=== PATIENT | female | born 1990 | race Caucasian/White ===

== ENCOUNTER 2016-03-30 19:14 | Emergency (ER) | payer MEDICAID ==
[~2016-03-30] VITALS: Ht 160 cm; Wt 71.2 kg
[~2016-03-30 19:14] MED LIST: BACTRIM DS 8001 TAB PO; CIPRO 500MG TA500 MG PO; DEPO PROVER150 MG/ML IM; DEPO-PROVER150 MG/M2 IM; FIORICET 325 MG1 TAB PO; KEFLEX 500MG.500 MG PO; LORTAB 5/500 501 TAB PO; NOMEDS; PRENATAL PLUS1 TA1 PO; SULFAMETHOXAZOL1 TA6 PO; TRAMADOL 50MG T50 MG PO; TYLENOL/COD #31 EACH PO; ZOFRAN4 MG PO
[2016-03-30] MEDS ORDERED: PRENATAL PLUS1 TA1 PO (20:00)
--- NOTE | 2016-03-30 21:33 | Emergency Room Report ---
History of Present Illness Time Seen by [id number] Presenting Problem in Triage Pt arrived:Walked Presenting Problem:PT STATES HEMMORHOID THAT HAS FLARED UP FOR TWO DAYS. STATES PAIN WHILE SITTING OR WITH ACTIVITY. STATES PAIN WITH BOWEL MOVEMENTS. STATES HISTORY OF HEMMORHOIDS. STATES USING OTC HEMMORHOID MEDICATION AT 1300. 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 N Clinical Suspician of Infection? N Mental Status: 1 - Regular (Normal Baseline) Sepsis Risk:Possible Sepsis Risk Have you (or family members/close friends) recently traveled outside the [place]? N If Yes, where/when: Have you had exposure to infectious disease within the past month? N TB? Other? Specify: Source patient, RN notes reviewed, family, old records Exam Limitations no limitations Comment 31 week wf with large hemmorroid - saw ob today - some bleeding and has assoc pain Cardiac Chest Pain Chest pain indicative of cardiac No Timing/Duration this evening Severity moderate ALLERGIES Coded Allergies: Penicillins (03/30/16) Home Medications Reported Medications MULTIVIT-MIN W/FE-FA ( Multivitamin Tablet) 1 TAB PO DAILY History Medical History General CAD? No Angina: No [place]: No Hypertension? No Hyperlipidemia? No CHF? No DVT? No PE? No COPD? No Asthma? Yes Anemia? No GERD? Yes Gastric ulcers? No GI Bleed? No Hernia? No Thyroid Problems? No Hypothyroidism? No CVA? No Seizures? No Diabetes? No Renal Insuffiency? No End Stage Renal Disease? No UTI? Yes Stones? No GB Disease: No Nephritic Syndrome? No Asplenia? No Hepatitis? No Sickle Cell Disease? No Arthritis? No Migraines? No Cataracts? No Glaucoma? No MRSA? No HIV? No TB? No Anxiety? No Depression? No Cancer? 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 Respiratory denies cough, denies shortness of breath, denies wheezing Cardiovascular denies chest pain, denies palpitations, denies syncope Gastrointestinal see HPI, denies abdominal pain, denies vomiting Genitourinary denies: abnormal vaginal bleeding. Musculoskeletal denies joint pain, denies joint swelling, denies neck pain Skin denies rash Psychiatric/Neurological denies seizure Physical Exam Vital Signs Vital Signs Date Time Temp Pulse Resp B/P Pulse O2 O2 Flow FiO2 Ox Delivery Rate 03/30 1951 98.5 112 20 130/66 98 - WBC >12,000 or <4,000 or 10% bands? 2 or more SIRS Criteria Met? B/P:130/66 MAP:87 Creatinine >2.0? UA output<0.5ml/kg/hr for 2 hrs? Platelet count >100,000? Lactate >2.0mmol/1? INR >1.2 or PTT > than 60 sec? Evidence of Organ Dysfunction? Provider documented clinical suspician of infection? N Sepsis Criteria Count: 2 Sepsis Risk: Possible Sepsis Risk General Appearance no apparent distress Eye Exam - bilateral eye PERRL, bilateral eye EOMI Ear, Nose, Throat normal ENT inspection Neck supple Respiratory Status No: respiratory distress. Cardiovascular regular rate/rhythm Peripheral Pulses Pulses normal Yes Gastrointestinal large tender thrombosed hemmorroid at 10 oclock - some small hemmoroids noted Extremities normal inspection Strength 4 Upper Ext (L), 4 Upper Ext (R), 4 Lower Ext (L), 4 Lower Ext (R) Neurologic alert, senior partner II-XII nml as tested, no motor/sensory deficits Reflexes Reflexes normal No Mental status normal mood/affect Skin intact Medical Decision Making LABS/Meds/Orders Pt receiving controlled substance in ED? No Results/Orders Current Medication Orders Sig/Jonah Start time Last Medication Dose Route Stop Time Status Admin Lidocaine HCl 0 .STK-MED ONE 03/302 DC .ROUTE Procedures Incision and Drainage Incision and Drainage Risks/benefits discussed with pt/guardian? Yes Problem type hemmorroid Location rectal Size cm 1.0 Anesthesia Lidocaine 1% Blade Size 15 Departure Departure Time of Disposition 2150 Disposition DC Home or Self Care(routine) Clinical Impression Primary Impression: Hemorrhoids during Qualifiers: Trimester: third trimester Qualified Code: O22.43 - Hemorrhoids in , third trimester Condition STABLE Referrals Juan Avila MD (Family) Patient Instructions DI for Hemorrhoids Additional Instructions see your dr for follow up or ed if needed Discharge Counseling Counseled pt/family regarding diagnosis, follow up needs ED Critical Care Critical Care No at [phone]
--- NOTE | 2016-03-30 21:33 | Emergency Room Report ---
History of Present Illness Time Seen by [id number] Presenting Problem in Triage Pt arrived:Walked Presenting Problem:PT STATES HEMMORHOID THAT HAS FLARED UP FOR TWO DAYS. STATES PAIN WHILE SITTING OR WITH ACTIVITY. STATES PAIN WITH BOWEL MOVEMENTS. STATES HISTORY OF HEMMORHOIDS. STATES USING OTC HEMMORHOID MEDICATION AT 1300. 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 N Clinical Suspician of Infection? N Mental Status: 1 - Regular (Normal Baseline) Sepsis Risk:Possible Sepsis Risk Have you (or family members/close friends) recently traveled outside the [place]? N If Yes, where/when: Have you had exposure to infectious disease within the past month? N TB? Other? Specify: Source patient, RN notes reviewed, family, old records Exam Limitations no limitations Comment 31 week wf with large hemmorroid - saw ob today - some bleeding and has assoc pain Cardiac Chest Pain Chest pain indicative of cardiac No Timing/Duration this evening Severity moderate ALLERGIES Coded Allergies: Penicillins (03/30/16) Home Medications Reported Medications MULTIVIT-MIN W/FE-FA ( Multivitamin Tablet) 1 TAB PO DAILY History Medical History General CAD? No Angina: No [place]: No Hypertension? No Hyperlipidemia? No CHF? No DVT? No PE? No COPD? No Asthma? Yes Anemia? No GERD? Yes Gastric ulcers? No GI Bleed? No Hernia? No Thyroid Problems? No Hypothyroidism? No CVA? No Seizures? No Diabetes? No Renal Insuffiency? No End Stage Renal Disease? No UTI? Yes Stones? No GB Disease: No Nephritic Syndrome? No Asplenia? No Hepatitis? No Sickle Cell Disease? No Arthritis? No Migraines? No Cataracts? No Glaucoma? No MRSA? No HIV? No TB? No Anxiety? No Depression? No Cancer? 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 Respiratory denies cough, denies shortness of breath, denies wheezing Cardiovascular denies chest pain, denies palpitations, denies syncope Gastrointestinal see HPI, denies abdominal pain, denies vomiting Genitourinary denies: abnormal vaginal bleeding. Musculoskeletal denies joint pain, denies joint swelling, denies neck pain Skin denies rash Psychiatric/Neurological denies seizure Physical Exam Vital Signs Vital Signs Date Time Temp Pulse Resp B/P Pulse O2 O2 Flow FiO2 Ox Delivery Rate 03/30 1951 98.5 112 20 130/66 98 - WBC >12,000 or <4,000 or 10% bands? 2 or more SIRS Criteria Met? B/P:130/66 MAP:87 Creatinine >2.0? UA output<0.5ml/kg/hr for 2 hrs? Platelet count >100,000? Lactate >2.0mmol/1? INR >1.2 or PTT > than 60 sec? Evidence of Organ Dysfunction? Provider documented clinical suspician of infection? N Sepsis Criteria Count: 2 Sepsis Risk: Possible Sepsis Risk General Appearance no apparent distress Eye Exam - bilateral eye PERRL, bilateral eye EOMI Ear, Nose, Throat normal ENT inspection Neck supple Respiratory Status No: respiratory distress. 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 No Results/Orders Current Medication Orders Sig/Jonah Start time Last Medication Dose Route Stop Time Status Admin Lidocaine HCl 0 .STK-MED ONE 03/302 DC .ROUTE Procedures Incision and Drainage Incision and Drainage Risks/benefits discussed with pt/guardian? Yes Problem type hemmorroid Location rectal Size cm 1.0 Anesthesia Lidocaine 1% Blade Size 15 Departure Departure Time of Disposition 2150 Disposition DC Home or Self Care(routine) Clinical Impression Primary Impression: Hemorrhoids during Qualifiers: Trimester: third trimester Qualified Code: O22.43 - Hemorrhoids in , third trimester Condition STABLE Referrals Juan Avila MD (Family) Patient Instructions DI for Hemorrhoids Additional Instructions see your dr for follow up or ed if needed Discharge Counseling Counseled pt/family regarding diagnosis, follow up needs ED Critical Care Critical Care No at [phone]
[2016-03-30 22:01] VITALS: BP 119/72
== END 2016-03-30 22:01 | disposition home or self-care (01) ==
LOC: ER 19:14
PROC: 0D9P0ZZ Drainage of Rectum, Open Approach (ICD-10-PCS; principal; 2016-03-30)
DX: O22.43 Hemorrhoids in pregnancy, third trimester (principal)

== ENCOUNTER 2016-12-10 16:24 | Emergency (ER) | payer MEDICAID ==
[~2016-12-10] VITALS: Ht 157.5 cm; Wt 50.8 kg
[~2016-12-10 16:24] MED LIST changes: +IBUPROFEN800 MG PO
--- NOTE | 2016-12-10 16:43 | Urgent Treatment Center Report ---
See Addendum History of Present Issue Date/Time Seen by Provider 12/10/16 1635 Visit Reason Pt arrived:Walked Presenting Problem:LEFT EYE PAIN T Location if Accident: Onset of symptoms date/time:12/10/16 or onset unknown for: Have you (or family members/close friends) recently traveled outside the [place]? If Yes, where/when: Have you had exposure to infectious disease within the past month? TB? Other? Specify: c/o left eye burning and irritation x < 1 hour. First noticed when walking out of [email or web address] [place] like something hit her eye "maybe a bug or eyelash". Blinked several times on way to car. Immediately looked at eye. Couldn't find anything in eye. Eye feels best when closed. "slight" light sensitivity. Hasn't taken or tried anything. "we came straight here". Last tdap unknown. Denies having had it with any of her three pregnancies including most recent < 1 year ago. Reports typical vision 20/20 bilaterally. no glasses or contacts. No drainage or redness. Source patient Exam Limitations no limitations ALLERGIES Coded Allergies: Penicillins (03/30/16) Home Medications Active Scripts Ibuprofen (Ibuprofen 800MG) 800 MG PO QIDP PRN pain #30 TAB Prov: 11/06/16 Reported Medications MULTIVIT-MIN W/FE-FA ( Multivitamin Tablet) 1 TAB PO DAILY History Medical History General CAD? No Angina: No [place]: No Hypertension? No Hyperlipidemia? No CHF? No DVT? No PE? No COPD? No Asthma? Yes Anemia? No GERD? Yes Gastric ulcers? No GI Bleed? No Hernia? No Thyroid Problems? No Hypothyroidism? No CVA? No Seizures? No Diabetes? No Renal Insuffiency? No UTI? Yes Stones? No GB Disease: No Nephritic Syndrome? No Asplenia? No Hepatitis? No Sickle Cell Disease? No Arthritis? No Migraines? No Cataracts? No Glaucoma? No MRSA? No HIV? No TB? No Anxiety? No Depression? No Cancer? No Immunization HX DT/Tetanus 1-4 YRS Flu NEVER Pneumonia NEVER Surgical Hx Previous Surgery?Y LEEP Tonsils WISDOM TEETH SINUS-NASAL Family History Family HX Diabetes Yes CAD Yes Hypertension Yes Hyperlipidemia No Cancer No TB No Social History Smoking Hx Packs/day < 1 Pack Alcohol Alcohol: No Review of Systems All Other Systems Reviewed and Negative Constitutional denies fever, denies malaise Eyes see HPI, blurred vision ("maybe a little, not sure"), denies inflammation Psychiatric/Neurological denies headache, denies other (dizziness) Physical Exam Vital Signs Vital Signs Date Time Temp Pulse Resp B/P Pulse O2 O2 Flow FiO2 Ox Delivery Rate 12/10 1640 98.0 80 18 112/68 98 12/10 1634 98.0 80 18 98 General Appearance normal appearance, no obvious distress but is holding left eyelid closed w/ hand Eye Exam - bilateral eye normal exam (x/ lt watery&pt blinking often) Respiratory Status No: respiratory distress. Cardiovascular no peripheral edema Neurologic alert, no motor/sensory deficits, oriented x 3 Skin normal color, warm/dry Medical Decision Making LABS/Meds/Orders Pt receiving controlled substance in ED? No Results/Orders Current Medication Orders Sig/Jonah Start time Last Medication Dose Route Stop Time Status Admin Boric Acid/Sodium 120 ML ONCE ONE 12/10 170 DC Borate OP 12/10 1701 Diphtheria/Pertussis/ 0.5 ML ONCE ONE 12/10 1699 DC Tetanus Vacc IM 12/10 170 Fluorescein Sodium 1 EACH ONCE ONE 12/10 1700 DC OP 12/10 170 Gentamicin Sulfate 0.5 GM ONCE ONE 12/10 1700 DC OP 12/10 170 Tetracaine HCl See Dose ONCE ONE 12/10 170 DC Insts (1) OP 12/10 1701 Diphtheria/Pertussis/ 0 .STK-MED ONE 12/10 165 DC Tetanus Vacc IM Dose Instructions: (1)Tetracaine HCl: DOSE = 1 - 2 DROPS Procedures Eye Procedure Eye Procedure Risks/benefits discussed with pt/guardian? Yes Tetracaine Drops Administered left eye Fluorescein Stick(s) Used left eye Slit lamp exam Yes (<1mm abrasion over pupil) Eye Irrigated w/ Saline (ccs) 20 Antibiotic Ointment/Drps Admin left eye (erythromycin) Departure Departure Time of Disposition 1702 Disposition DC Home or Self Care(routine) Clinical Impression Primary Impression: Corneal abrasion, left Qualifiers: Encounter type: initial encounter Qualified Code: S05.02XA - Injury of conjunctiva and corneal abrasion without foreign body, left eye, initial encounter Condition STABLE Referrals NO REFERRAL Return to ER this weekend for new or worsening symptoms. if no improvement Monday, follow up w/ opthamology as we discussed. Patient Instructions DI for Corneal Abrasion Additional Instructions Read attached education Use antibiotic ointment as discussed. Sunglasses help Avoid rubbing eyes Updated your tetanus vaccine that also contained pertussis. (tdap). Notify your primary care so they can update your records. Discharge Counseling Counseled pt/family regarding diagnosis, test results, medications/RX, home care, follow up needs Prescriptions Current Visit Scripts Erythromycin (Erythromycin Ophth Oint 3.5GM Tube) 1 GM OP 4-6X/DAY #3.5 GM Comments erythromycin ointment not available in clinic. Gentamycin applied and provided to pt until pharmacy reopens in morning. at 1707
[2016-12-10] MEDS ORDERED: ERYTHROMYC3.5 GM/TUB OP (17:06)
[2016-12-10 17:29] VITALS: BP 112/68
== END 2016-12-10 17:30 | disposition home or self-care (01) ==
LOC: ER 16:24 → UTC 16:34
DX: S05.02XA Injury of conjunctiva and corneal abrasion without foreign body, left eye, initial encounter (principal); J45.909 Unspecified asthma, uncomplicated; K21.9 Gastro-esophageal reflux disease without esophagitis; F17.210 Nicotine dependence, cigarettes, uncomplicated; Z88.0 Allergy status to penicillin

== ENCOUNTER 2017-02-15 17:35 | Emergency (ER) | payer MEDICAID ==
[~2017-02-15] VITALS: Ht 157.5 cm; Wt 68.0 kg
[~2017-02-15 17:35] MED LIST changes: +ERYTHROMYC3.5 GM/TUB OP
--- NOTE | 2017-02-15 18:59 | Urgent Treatment Center Report ---
History of Present Issue Date/Time Seen by Provider 02/15/17 1326 Visit Reason Pt arrived:Walked Presenting Problem:PT STATES SORE THROAT AND BLISTERS X1 WEEK Location if Accident: Onset of symptoms date/time:/ or onset unknown for:MEDICAL HX UNKNOWN Have you (or family members/close friends) recently traveled outside the [place]? N If Yes, where/when: Have you had exposure to infectious disease within the past month? TB? Other? Specify: c/o white coating on tongue and she thinks possibly blisters on back of tongue. "maybe they are taste buds though". Sore throat x1 week. Kids had strep. Was seen for the onset of sore throat last week at clinic. No strep. Treated w/ zjoseck "just in case". Completed it and now white coating on tongue with possible blisters x days. No treatment prior to arrival. Pt is . Pt reports prior to arrival she brushed her teeth and removed a large amount of the white coating off her tongue. mouth feels dry. Source patient Exam Limitations no limitations ALLERGIES Coded Allergies: Penicillins (03/30/16) History Medical History General CAD? No Angina: No [place]: No Hypertension? No Hyperlipidemia? No CHF? No DVT? No PE? No COPD? No Asthma? Yes Anemia? No GERD? Yes Gastric ulcers? No GI Bleed? No Hernia? No Thyroid Problems? No Hypothyroidism? No CVA? No Seizures? No Diabetes? No Renal Insuffiency? No UTI? Yes Stones? No BPH? No GB Disease: No Nephritic Syndrome? No Asplenia? No Hepatitis? No Sickle Cell Disease? No Arthritis? No Migraines? No Cataracts? No Glaucoma? No MRSA? No HIV? No TB? No Anxiety? No Depression? No Cancer? No More? No Immunization HX DT/Tetanus Unknown Flu NEVER Pneumonia NEVER Surgical Hx Previous Surgery?Y LEEP Tonsils WISDOM TEETH SINUS-NASAL Family History Family HX Diabetes Yes CAD Yes Hypertension Yes Hyperlipidemia No Cancer No TB No Social History Smoking Hx Smoker: Current Every Day Smoker Tobacco: Yes Type Cigarettes Packs/day < 1 Pack Alcohol Alcohol: No Review of Systems All Other Systems Reviewed and Negative Constitutional denies fever, denies malaise Eyes denies drainage ENT denies: ear pain, nose discharge, nose congestion, throat swelling. Respiratory denies cough Gastrointestinal denies no symptoms reported Musculoskeletal denies joint pain Skin denies rash Psychiatric/Neurological denies headache Physical Exam Vital Signs Vital Signs Date Time Temp Pulse Resp B/P Pulse O2 O2 Flow FiO2 Ox Delivery Rate 02/15 1918 98.0 87 20 129/69 96 02/16 1820 98.0 87 20 129/69 96 General Appearance normal appearance, no apparent distress Ear, Nose, Throat light white coating on tongue, enlarged papillae, no pain, normal pharynx, EACs and TMs Neck non-tender, supple Respiratory Status No: respiratory distress, productive cough, non productive cough. Cardiovascular no peripheral edema Neurologic alert Skin normal color, warm/dry Lymphatic no adenopathy Medical Decision Making LABS/Meds/Orders Pt receiving controlled substance in ED? No Results/Orders Laboratory Tests 02/15/171819: Group A Strep Screen NOT DETECTED Orders Procedure Date/time Status [facility] STREP SCREEN 02/16 1820 Complete Departure Departure Time of Disposition 1913 Disposition DC Home or Self Care(routine) Clinical Impression Primary Impression: Thrush, oral Condition STABLE Referrals NO REFERRAL Follow up with primary care for new or worsening symptoms or if symptoms don't resolve w/ treatment. Patient Instructions DI for Thrush Additional Instructions Read attached education Start medication oral rinse and use as directed Follow up with primary care if symptoms don't resolve Discharge Counseling Counseled pt/family regarding diagnosis, medications/RX, home care, follow up needs Prescriptions Current Visit Scripts NYSTATIN (Nystatin Susp 100,000 Units/Ml 60ML) 5 ML PO QID #240 ML swish and swallow until 48 hours after symptoms resolve at 1925
--- OUTSIDE RECORDS SUMMARY | 2017-02-15 19:03 | External Medical Summary Rpt | CCD ---
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 JR GI AR NA MA TH L CY OM RI NG #5 L 91 AZ 59 04 04 00 6. 5 PH 64 No Ac IT 76 -1 -2 00 AR 29 t ti HR 23 5- 4- 0 MC 63 Av ve OM 06 20 20 AR ai YC 00 08 08 E la IN 1 PH bl AR e 25 MA 0 CY MG TA BL ET LO 00 04 04 00 30 30 WA 88 No Ac RA 78 -0 -2 .0 L- 12 t ti TA 15 8- 4- 00 MA 06 Av ve DI 07 20 20 RT 7 ai NE 70 08 08 la 1 PH bl 10 AR e MA MG CY TA #5 BL 91 ET 00 02 04 00 0. 84 WA 69 No Ac 00 -1 -1 65 L- 60 t ti 94 9- 7- 0 MA 96 Av ve 70 20 20 RT 9 ai 90 08 08 la 1 PH bl AR e MA CY #5 91 00 02 03 00 0. 84 WA 69 No Ac 00 -1 -2 65 L- 60 t ti 94 9- 6- 0 MA 96 Av ve 70 20 20 RT 9 ai 90 08 08 la 1 PH bl AR e MA CY #5 91 00 01 03 00 6. 2 WA 69 No Ac 60 -2 -2 00 L- 57 t ti 35 8- 6- 0 MA 78 Av ve 14 20 20 RT 8 ai 22 08 08 la 1 PH bl AR e MA CY #5 91 63 01 03 00 10 5 WA 69 No Ac 30 -2 -2 .0 L- 57 t ti 40 8- 6- 00 MA 78 Av ve 71 20 20 RT 9 ai 00 08 08 la 1 PH bl AR e MA CY #5 91 AZ 59 02 03 00 6. 5 PH 63 No Ac IT 76 -0 -2 00 AR 75 t ti HR 23 6- 6- 0 MC 85 Av ve OM 06 20 20 AR ai YC 00 08 08 E la IN 1 PH bl AR e 25 MA 0 CY MG TA BL ET NU 00 11 03 02 1. 28 PH 63 No Ac VA 05 -2 -2 00 AR 18 t ti RI 20 6- 6- 0 MC 95 Av ve NG 27 20 20 AR ai 30 07 08 E la VA 3 PH bl GI AR e NA MA L CY RI NG NU 00 11 03 01 1. 28 PH 63 No Ac VA -2 -2 00 AR 18 t ti RI 20 6- 5- 0 MC 95 Av ve NG 27 20 20 AR ai 30 07 08 E la VA 3 PH bl GI AR e NA MA L CY RI NG AC 00 01 03 00 6. 2 WA 44 No Ac ET -2 00 L- 65 t ti AM 30 7- 5- 0 MA 62 Av ve IN 15 20 20 RT 8 ai OP 01 08 08 la HE 0 PH bl N- AR e CO MA D CY #3 #5 TA 91 BL ET Vital Signs 08-22-2012 15:53 Name Value Interpretat Reference Comment ion Range Body 98.3 [degF] Temperature BP 68 mm[Hg] Diastolic BP Systolic 115 mm[Hg] Heart 96 /min Rate/Pulse O2% 97 % Respiratory 18 /min Rate 08-22-2012 14:55 Name Value Interpretat Reference Comment ion Range BP 58 mm[Hg] Diastolic BP Systolic 108 mm[Hg] Heart 106 /min Rate/Pulse O2% 97 % Respiratory 18 /min Rate 07-29-2012 20:01 Name Value Interpretat Reference Comment ion Range BP 61 mm[Hg] Diastolic BP Systolic 99 mm[Hg] Heart 81 /min Rate/Pulse O2% 99 % Respiratory 16 /min Rate 04-24-2012 00:43 Name Value Interpretat Reference Comment ion Range Body 98.3 [degF] Temperature BP 64 mm[Hg] Diastolic BP Systolic 131 mm[Hg] Heart 92 /min Rate/Pulse O2% 96 % Respiratory 18 /min Rate 04-24-2012 00:42 Name Value Interpretat Reference Comment ion Range Body 98.3 [degF] Temperature BP 64 mm[Hg] Diastolic BP Systolic 131 mm[Hg] Heart 92 /min Rate/Pulse O2% 96 % Respiratory 18 /min Rate Results Labs Lab Lab Date Result Refere Interp Status Commen Order Detail nces retati t Range on Urinalysis dipstick W Reflex Microscopic panel in Urine (09-10-2016 00:25) Epithel 20-50 0#/hp complet ial 017 f - ed cells.s 00:25 5#/hp quamous f [Presen ce] in Urine sedimen t by Microsc opy high power field Urinalysis dipstick W Reflex Microscopic panel in Urine (09-10-2016 00:25) Appeara SL CLEAR complet nce of 017 CLOUDY ed Urine 00:25 Bilirub NEGATIV NEG complet in 017 E ed [Presen 00:25 ce] in Urine by Test strip Erythro NEGATIV NEG complet cytes 017 E ed [Presen 00:25 ce] in Urine Color YELLOW YELLOW complet of 017 ed Urine 00:25 Ketones NEGATIV NEG complet 017 E ed [Presen 00:25 ce] in Urine by Automat ed test strip Mucus NEGATIV NEG complet [Presen 017 E ed ce] in 00:25 Urine sedimen t by Light microsc opy Nitrite NEGATIV NEG complet 017 E ed [Presen 00:25 ce] in Urine by Test strip Urobili 1.0 NEG complet nogen 017 ed [Presen 00:25 ce] in Urine by Test strip CBC W Diff pnl,unspecified Bld (05-27-2016 08:28) WBC 10-2 9.97 3.50-10 complet nRBC 017 10*3/mm .80 ed cor # 08:28 3 Bld RBC # 10-2 3.00 3.89-5. complet Bld 017 10*6/mm 14 ed Auto 08:28 3 Hgb 10-2 8.8 11.5-15 complet Bld-mCn 017 g/dL .5 ed c 08:28 Hct VFr 05-27-2 28.1 % 34.5-44 complet Bld 017 .0 ed Auto 08:28 MCV RBC 10-2 93.7 fL 80.0-99 complet Auto 017 .0 ed 08:28 MCH RBC 10-2 29.3 pg 27.0-31 complet Qn 017 .0 ed Auto 08:28 MCHC 05-27-2 31.3 32.0-36 complet RBC 017 g/dL .0 ed Auto-mC 08:28 nc RDW RBC 03-10-2 13.7 % 11.3-14 complet 017 .5 ed Auto-Rt 08:28 o RDW RBC 03-10-2 46.7 fl 37.0-54 complet Auto 017 .0 ed 08:28 PMV Bld -10-2 13.0 fL 6.0-12. complet Auto 017 0 ed 08:28 Platele -10-2 112 150-450 complet t # Bld 017 10*3/mm ed Auto 08:28 3 Neutrop 03-10-2 73.4 % 41.0-71 complet hils 017 .0 ed NFr Bld 08:28 Auto Lymphoc 03-10-2 18.5 % 24.0-44 complet ytes 017 .0 ed NFr Bld 08:28 Auto Monocyt 03-10-2 6.9 % 0.0-12. complet es NFr 017 0 ed Bld 08:28 Auto Eosinop 03-10-2 0.6 % 0.0-3.0 complet hil NFr 017 ed Bld 08:28 Auto Basophi 03-10-2 0.1 % 0.0-1.0 complet ls NFr 017 ed Bld 08:28 Auto Imm 03-10-2 0.5 % 0.0-0.6 complet Granulo 017 ed cytes 08:28 NFr Bld Neutrop 03-10-2 7.32 1.50-8. complet hils # 017 10*3/mm 30 ed Bld 08:28 3 Auto Lymphoc 03-10-2 1.84 0.60-4. complet ytes # 017 10*3/mm 80 ed Bld 08:28 3 Auto Monocyt 03-10-2 0.69 0.00-1. complet es # 017 10*3/mm 00 ed Bld 08:28 3 Auto Eosinop 03-10-2 0.06 0.10-0. complet hil # 017 10*3/mm 30 ed Bld 08:28 3 Auto Basophi 03-10-2 0.01 0.00-0. complet ls # 017 10*3/mm 20 ed Bld 08:28 3 Auto Imm 03-10-2 0.05 0.00-0. complet Granulo 017 10*3/mm 03 ed cytes # 08:28 3 Bld CBC (hemogram) Bld Auto (05-25-2016 23:13) WBC -08-2 9.19 3.50-10 complet nRBC 017 10*3/mm .80 ed cor # 23:13 3 Bld RBC # 03-08-2 3.48 3.89-5. complet Bld 017 10*6/mm 14 ed Auto 23:13 3 Hgb -08-2 10.4 11.5-15 complet Bld-mCn 017 g/dL .5 ed c 23:13 Hct VFr 08-2 32.2 % 34.5-44 complet Bld 017 .0 ed Auto 23:13 MCV RBC 08-2 92.5 fL 80.0-99 complet Auto 017 .0 ed 23:13 MCH RBC 08-2 29.9 pg 27.0-31 complet Qn 017 .0 ed Auto 23:13 MCHC 08-2 32.3 32.0-36 complet RBC 017 g/dL .0 ed Auto-mC 23:13 nc RDW RBC 08-2 13.6 % 11.3-14 complet 017 .5 ed Auto-Rt 23:13 o RDW RBC 08-2 45.2 fl 37.0-54 complet Auto 017 .0 ed 23:13 PMV Bld 05-25-2 13.3 fL 6.0-12. complet Auto 017 0 ed 23:13 Platele 05-25-2 139 150-450 complet t # Bld 017 10*3/mm ed Auto 23:13 3 Gp B Strep XXX Ql Cult (05-03-2016 14:30) Bacteri No complet a XXX 017 Group B ed Aerobe 14:30 Cult Strepto coccus Isolate d from Broth Culture COMPREHENSIVE METABOLIC PANEL (08-22-2012 14:40) Glucose 08-22- 87 74-106 complet 013 mg/dL ed Bld-mCn 14:40 c BUN 08-22-2 10 7-18 complet Bld-mCn 013 mg/dL ed c 14:40 Creat 08-22-2 0.8 0.6-1.0 complet SerPl-m 013 mg/dL ed Cnc 14:40 ESTIMAT 08-22-2 108 50-200 complet ED 013 ML/MIN ed CREATIN 14:40 INE CLEARAN CE GFR 08-22- 91 59- complet (ESTIMA 013 ML/MIN ed VENKATESH) 14:40 Sodium 05-2 141 136-145 complet SerPl-s 013 mmoL/L ed Cnc 14:40 Potassi 05-2 3.7 3.5-5.1 complet um 013 mmoL/L ed SerPl-s 14:40 Cnc Chlorid 08-22-2 105 98-107 complet e 013 mmoL/L ed SerPl-s 14:40 Cnc CO2 05-2 27 21.0-32 complet SerPl-s 013 mmoL/L .0 ed Cnc 14:40 Calcium -05-2 8.6 8.5-10. complet 013 mg/dL 1 ed SerPl-m 14:40 Cnc Prot 08-22-2 7.8 6.4-8.2 complet SerPl-m 013 gm/dL ed Cnc 14:40 Albumin 05-2 4.2 3.4-5.0 complet 013 gm/dL ed SerPl-m 14:40 Cnc Globuli 08-22-2 3.6 1.3-3.2 complet n 013 gm/dL ed Ser-mCn 14:40 c Albumin 05-2 1.2 UNK 1.1-1.8 complet /Glob 013 ed SerPl-m 14:40 Rto Bilirub 08-22-2 0.4 0.2-1.0 complet 013 mg/dL ed SerPl-m 14:40 Cnc AST 05-2 18 U/L 15-37 complet SerPl-c 013 ed Cnc 14:40 ALT 05-2 49 U/L 30-65 complet SerPl-c 013 ed Cnc 14:40 ALP 05-2 101 U/L 50-136 complet SerPl-c 013 ed Cnc 14:40 B-HCG SerPl EIA 3rd IS-aCnc (08-22-2012 14:40) B-HCG -05-2 0 complet SerPl 013 mIU/ML ed EIA 3rd 14:40 IS-aCnc CBC with AUTO DIFF (08-22-2012 14:40) WBC # 06-05-2 9.6 4.8-10. complet Bld 013 K/MM3 8 ed Auto 14:40 RBC # 06-05-2 5.11 4.2-5.4 complet Bld 013 M/mm3 ed Auto 14:40 Hgb 06-05-2 14.6 12.2-16 complet Bld-mCn 013 g/dL .2 ed c 14:40 Hct Fr 06-05-2 45.8 % 37.0-47 complet Bld 013 .0 ed 14:40 MCV RBC 06-05-2 89.7 fl 82.2-97 complet 013 .8 ed 14:40 MCH RBC -05-2 28.6 pg 27-31.2 complet Qn 013 ed Auto 14:40 MEAN 06-05-2 31.9 31.8-35 complet CORPUSC 013 g/dl .4 ed ULAR 14:40 HGB CONC RDW RBC -05-2 15.0 % 11.5-17 complet Auto 013 .5 ed 14:40 Platele 06-05-2 268 142-424 complet t Bld 013 K/mm3 ed Ql 14:40 Manual Granulo 06-05-2 84.2 % 37.0-80 complet cytes 013 .0 ed Fr Bld 14:40 Auto LYMPH % 06-05-2 12.8 % 10-50.0 complet 013 ed 14:40 Monocyt 06-05-2 3.0 % 1.7-9.3 complet es Fr 013 ed Bld 14:40 Auto Granulo 06-05-2 8.1 1.8-7.8 complet cytes # 013 K/mm3 ed Bld 14:40 Auto Lymphoc 06-05-2 1.2 0.7-4.5 complet ytes Fr 013 K/mm3 ed Bld 14:40 Auto Monocyt 06-05-2 0.3 0.1-1.0 complet es # 013 K/mm3 ed Bld 14:40 Auto URINALYSIS/COMPLETE (08-22-2012 14:30) URINE 06-05-2 YELLOW YELLOW complet COLOR 013 ed 14:30 URINE 06-05-2 SL CLEAR complet APPEARA 013 CLOUDY ed NCE 14:30 URINE 06-05-2 NEGATIV NEG complet GLUCOSE 013 E ed - 14:30 DIPSTIC K URINE 06-05-2 NEGATIV NEG complet BILIRUB 013 E ed IN - 14:30 DIPSTIC K URINE 06-05-2 NEGATIV NEG complet KETONE 013 E mg/dL ed 14:30 URINE 06-05-2 1.025 1.005-1 complet SPECIFI 013 UNK .030 ed C 14:30 GRAVITY URINE 06-05-2 3+ NEG complet BLOOD 013 ed 14:30 URINE 06-05-2 6.0 UNK 5.0-8.5 complet PH 013 ed 14:30 URINE 06-05-2 NEGATIV NEG complet PROTEIN 013 E mg/dL ed - 14:30 DIPSTIC K URINE 06-05-2 0.2 NEG complet UROBILI 013 E.U./dL ed NOGEN - 14:30 DIPSTIC K URINE 06-05-2 NEGATIV NEG complet NITRATE 013 E ed - 14:30 DIPSTIC K URINE 06-05-2 NEGATIV NEG complet LEUK 013 E ed ESTERAS 14:30 E URINE 06-05-2 3-5 0 complet RBC 013 rbc/hpf ed 14:30 URINE 06-05-2 5-10 O complet WBC 013 wbc/hpf ed 14:30 URINE 06-05-2 20-50 0-5 complet SQUAMOU 013 #/hpf ed S CELLS 14:30 URINE 06-05-2 1+ O complet BACTERI 013 ed A 14:30 URINE 06-05-2 1+ OCC complet MUCUS 013 ed 14:30 Procedures Procedure DOS Code Location Performer Comment DRAINAGE [id number] [facility] [employer] [address] [place] [address] THERAPEUT POC EARLE/ART OP DELIVERY [id number] [facility] [employer] [address] [place] [address] CONCEPTIO N EXTERNAL OTHER 7359 [facility] MANUALLY 4 [facility] DELIVERY INTRANASA 222 MARC TRAN L 0 [facility] ANTROTOMY INC INC OTHER 2169 MARC TRAN TURBINECT 0 [facility] AUGUSTINE INC INC OTHER 2188 MARC TRAN SEPTOPLAS 0 [facility] TY INC INC OTHER 2219 MARC TRAN DIAGNOSTI 0 [facility] C INC INC PROCEDURE S ON NASAL SINUSES HEMORRHOI 49.46 M. Deepak Malone MD Encounters Encounter Start End Date Code Location Performer Type Date [facility] 4 [facility] - 4 4 [facility] - 4 4 [facility] C[facility] - 4 4 [facility]PAT[facility] Emergency TAWNYA Christopher MD (ER) 3 14:32 3 16:02 [facility] Emergency TAWNYA Malone MD (ER) 3 19:40 3 20:04 [facility] CENTRAL - 3 3 [facility] OUTPATIEN [facility] Emergency TAWNYA Malone MD (ER) 3 00:20 3 00:43 [facility] CENTRAL - 3 3 [facility] - 3 3 [facility] - 0 0 [facility] 0 0 [facility] [place] [facility] 9 9 [facility] 9 [facility] 9 [facility] [place] - 9 9 [facility] [place] - 8 8 [facility]
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
--- OUTSIDE RECORDS SUMMARY | 2017-02-15 19:07 | External Medical Summary Rpt | CCD ---
Author Author , OUMOU COELLO Address Unknown Phone [email or web address] Care Team Providers Care Child Care Leader Name Role Phone ALEA COSBY Unavailable Unavailable GNOSTICIST ANESTHESIA Unavailable Unavailable [facility], GNOSTICIST ANESTHESIA [facility] GNOSTICIST HEALTH Unavailable Unavailable [facility], G[facility]STICIST HEALTH [place] GNOSTICIST LABORIST Unavailable Unavailable SERVICE, GNOSTICIST LABORIST SERVICE [facility], Unavailable Unavailable [facility] Unavailable Unavailable PHYS PSC, [...] Unavailable [facility] Unavailable Unavailable INC, [facility] Unavailable Unavailable [facility], [facility] JUJU HERNANDEZ JR, Unavailable Unavailable JUJU HERNANDEZ JR, BRETT A, Unavailable Unavailable KRISTINA BANKS [facility], Unavailable Unavailable [facility] LUCAS MEYER, Unavailable Unavailable LUCAS MEYER [facility], Unavailable Unavailable [facility] Unavailable Unavailable HOLDINGS, [facility] Unavailable Unavailable [facility] OF [facility], LABORATORY [employer] [facility] AM TYLER MIXON, Unavailable Unavailable TYLER MIXON JR, THOMAS, Unavailable Unavailable TERESSA SAEED JR, LEWIS Unavailable Unavailable KARY CASTRO, Unavailable Unavailable KARY RAMIREZ [facility] SALES AND MARKETING COORDINATOR Unavailable Unavailable ASSOCIATES,, [place] [facility] MARKET[facility] COORDIN[facility], [place] SALES AND MARKETING COORDINATOR, Unavailable Unavailable PSC, [place] SALES AND MARKETING COORDINATOR, [facility] Unavailable Unavailable INTERNAL MED, [facility] Unavailable Unavailable [facility], [facility] ABILIO MONTOYA, Unavailable Unavailable ABILIO MONTOYA [facility] Unavailable Unavailable [facility], Unavailable Unavailable ORQUIDEA, FLORENCIO LOPEZ, AYANA DARA II O, DARA Unavailable Unavailable II O [facility], Unavailable Unavailable [facility] Unavailable Unavailable LAB, [facility] Unavailable Unavailable [facility], [facility], Unavailable Unavailable [facility] TRAVIS HUITRON, Unavailable Unavailable TRAVIS DURHAM, DAMION Unavailable Unavailable DEN LUPE TOTH, Unavailable Unavailable LUPE TOTH SCIMARCELINO, SCIFRES Unavailable Unavailable GABRIELE KILPATRICKA M, Unavailable Unavailable SCIMARCELINO ALEJANDRINA M [facility] Unavailable Unavailable EQUIPME, [facility] GERONIMO CHRISTIAN, Unavailable Unavailable GERONIMO [...] Provider Status [id number] 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 [id number] REGULAR 12-16-2016 SC[facility] ASTIGMATISM BILATERAL K219 GASTRO-ESOP 11-06-2016 [facility] DISEASE INC WITHOUT ESOPHAGITIS [id number] OTHER 11-06-2016 [facility]CLE [facility] SPASM INC Z720 TOBACCO USE 11-06-2016 [facility] INC M530 CERVICOCRAN 11-01-2016 [facility] IAL SYNDROME 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 MOTHER [id number] MATERNAL 05-26-2016 [facility] EXCESS SALES AND MARKETING COORDINATOR ASSOCIATES, GROWTH UNS TRI NA/UNS O80 ENCOUNTER 05-26-2016 GNOSTICIST FOR ANESTHESIA FULL-TERM PSC UNCOMPLICAT ED DELIVERY O9902 ANEMIA 05-26-2016 [place] COMPLICATIN SALES AND MARKETING COORDINATOR G ASSOCIATES, CHILDBIRTH C54588 OTH DZ 05-26-2016 GNOSTICIST BLOOD & BFO ANESTHESIA IMMUN MECH PSC COMP PREG UNS TRI Z370 SINGLE LIVE 05-26-2016 [place] SALES AND MARKETING COORDINATOR ASSOCIATES, [id number] L & D COMP 05-25-2016 GNOSTICIST CORD AROUND HEALTH NECK W/O [facility] COMPRS NA/UNS Z3A39 39 WEEKS 05-25-2016 GNOSTICIST [facility] [place] Z3483 ENC 05-24-2016 [place] SUPERVISION SALES AND MARKETING COORDINATOR OTH NORMAL ASSOCIATES, 3 TRIMESTER C52217 SUP PREG 05-10-2016 [place] W/OTH POOR SALES AND MARKETING COORDINATOR REPRODUCTIV ASSOCIATES, E/OB HX THIRD TRI O479 FALSE LABOR 05-07-2016 GNOSTICIST HEALTH UNSPECIFIED [place] Z3A00 WEEKS OF 05-07-2016 [facility]STICIST [facility] [place] NOT SPECIFIED K645 PERIANAL 04-14-2016 [facility] THROMBOSIS Z331 04-14-2016 [facility] INCIDENTAL O2243 HEMORRHOIDS 03-30-2016 [facility] IN [facility] THIRD TRIMESTER Z3A31 31 WEEKS 03-30-2016 [facility] GESTATION PHYS[facility]ANS, OF [facility] Z3480 ENC 03-08-2016 LAB [facility] SUPERVISION [facility] NORMAL HOLDINGS PREG UNS TRIMESTER J069 ACUTE UPPER 03-03-2016 [facility] INTERNAL INFECTION MED UNSPECIFIED O78262 SUP PREG 02-09-2016 [place] W/OTH POOR SALES AND MARKETING COORDINATOR REPRODUCTIV ASSOCIATES, E/OB HX 2ND TRI N04194 SMOKING 01-12-2016 [place] TOBACCO SALES AND MARKETING COORDINATOR COMP ASSOCIATES, FIRST TRIMESTER Z36 ENCOUNTER 01-12-2016 [place] FOR SALES AND MARKETING COORDINATOR ASSOCIATES, SCREENING OF MOTHER J309 ALLERGIC 11-27-2015 [facility] UNSPECIFIED INTERNAL MED S52827 SUP PREG 11-24-2015 [facility] W/OTH POOR SALES AND MARKETING COORDINATOR REPRODUCTIV ASSOCIATES, E/OB HX 1ST TRI R14207 SUPERVISION 10-27-2015 [facility] PREG W/HX SALES AND MARKETING COORDINATOR PRE-TERM ASSOCIATES, LABOR FIRST TRI X73612 ENCOUNTER 10-27-2015 [facility], MEDICAL RECORDS CODER EXAM LLC GENERAL RTN W/O ABNORMAL FIND Z113 ENCOUNTER 10-27-2015 [facility], SCREEN LLC INFECTIONS SEXL MODE TRANSMISSN Z3481 ENC 10-27-2015 LAB [facility] SUPERVISION NAOMI OT NORMAL HOLDINGS 1 TRIMESTER N809 ENDOMETRIOS 05-15-2015 [facility] IS EMERGENCY UNSPECIFIED PHYS PSC R102 PELVIC AND 05-15-2015 VIRTUAL PERINEAL RADIOLOGIC PAIN PROFESSIO R938 ABNORMAL 05-15-2015 VIRTUAL FIND ON DX RADIOLOGIC IMAGING [facility] PROFESSIO SPEC BODY STRCT O021 MISSED 05-13-2015 [place] SALES AND MARKETING COORDINATOR ASSOCIATES, O034 INCOMPLETE 05-13-2015 [facility] SPONTANEOUS SOLEDAD & DUBILIER W/O COMPLICATIO N Z3A09 9 WEEKS 05-13-2015 [place] GESTATION SALES AND MARKETING COORDINATOR OF ASSOCIATES, I22089 ENCOUNTER 05-12-2015 LABORATORY FOR m2p-labs PREPROCEDUR OF AM AL EXAMINATION O200 THREATENED 04-21-2015 [place] SALES AND MARKETING COORDINATOR ASSOCIATES, J029 ACUTE 03-03-2015 [facility] PHARYNGITIS [facility] INTERNAL UNSPECIFIED MED J042 ACUTE 03-03-2015 [facility] LARYNGOTRAC [facility]LEY HEITIS INTERNAL MED D63150 ACUTE 03-02-2015 [facility] SUPPURATIVE [facility] W/O HOSPITAL RUPT EAR DRUM UNS EAR K19889 PAIN IN 02-23-2015 [facility] LEFT KNEE [facility] C57113 PAIN IN 02-23-2015 [place] UNSPECIFIED HOME KNEE MEDICAL EQUIPME 4660 ACUTE 08-15-2014 [facility] BRONCHITIS [facility] 04665 ACUTE 08-11-2014 [facility] SEROUS [facility] OTITIS HOSPITAL MEDIA 4779 ALLERGIC 08-11-2014 [facility] RHINITIS [facility] HOSP[facility] UNSPECIFIED 14603 MATERNAL 12-27-2013 [facility] MENTAL D/O SALES AND MARKETING COORDINATOR ASSOCIATES, COND/COMPLI CATION 69687 TOBACCO USE 12-20-2013 [facility] D/O COMP SALES AND MARKETING COORDINATOR PG ASSOCIATES, CHILDBIRTH/ PP DELIVERED 650 NORMAL 12-20-2013 [facility] DELIVERY [facility]ICIST HOSP 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/ SALES AND MARKETING COORDINATOR ACQUIRED ASSOCIATES, ABNORM CERVIX W/DELIVERY V270 OUTCOME OF 12-20-2013 [facility] DELIVERY GNOSTICIST SINGLE HOSP LIVEBORN 91450 OTHER 12-17-2013 [facility] THREATENED SALES AND MARKETING COORDINATOR LABOR, ASSOCIATES, ANTEPARTUM 18920 THREATENED 12-15-2013 [facility] PREMATURE GNOSTICIST LABOR HOSP ANTEPARTUM 6259 UNSPEC 12-11-2013 GNOSTICIST SYMPTOM LABORIST ASSOC SERVICE W/FEMALE GENITAL ORGANS 57340 OTHER 12-11-2013 GNOSTICIST SPECIFED LABORIST COMPLICATIO SERVICE N ANTEPARTUM 51662 OT CURRENT 12-11-2013 [facility] MAT CONDS GNOSTICIST CLASSIFIABL HOSP E ELSW ANTPRTM V221 SUPERVISION 12-10-2013 MEDICAL OF OTHER DIAGNOSTIC NORMAL LAB LLC V2341 SUPERVISION 12-10-2013 [facility] SALES AND MARKETING COORDINATOR W/HISTORY ASSOCIATES, PRE-TERM LABOR 28425 TOB USE D/O 10-22-2013 [facility] COMP PG SALES AND MARKETING COORDINATOR /PP ASSOCIATES, ANTEPARTM COND/COMP V8281 SPECIAL 08-27-2013 [facility] SCREENING SALES AND MARKETING COORDINATOR, PSC FOR OSTEOPOROSI S 08440 OT 07-16-2013 [facility] CONGENITAL/ SALES AND MARKETING COORDINATOR ACQ ABNORM ASSOCIATES, CERV ANTPRTM COND/COMP 89710 UTERINE 06-18-2013 DARA II SIZE DATE O DISCREPANCY ANTPRTM COND/COMPL V745 SCREENING 06-18-2013 [facility]ER EXAMINATION [facility] FOR VENEREAL DISEASE 29638 UNSPECIFIED 05-07-2013 [facility] OTALGIA PHYSICIANS GROUP 462 ACUTE 05-07-2013 [facility] PHARYNGITIS PHYSICIANS GROUP 4659 ACUTE URIS 05-07-2013 [facility] OF PHYSICIANS UNSPECIFIED GROUP SITE V242 ROUTINE 07-03-2012 DAMION DURHAM FOLLOW-UP V2549 SURVEILLANC 07-03-2012 DAMION DURHAM E OT PREV PRSC CONTRACEPT METHOD V7241 07-03-2012 DAMION DURHAM EXAMINATION OR TEST NEGATIVE RESULT 3829 UNSPECIFIED 04-06-2012 [facility] OTITIS [facility] MEDIA INC V222 04-06-2012 [facility], [facility]OS[facility] INCIDENTAL INC 08844 OTH 04-03-2012 [facility] KNOWN/SUSPE SALES AND MARKETING COORDINATOR CTED ASSOCIATES, ABNORMALITY -NEC-APC/C 7932 NONSPC ABN 04-03-2012 [facility] FINDNG SALES AND MARKETING COORDINATOR RAD&OTH ASSOCIATES, EXAM OTH INTRTHOR ORGN V2389 SUPERVISION 12-16-2011 OF OTHER DIAGNOSTICC HIGH-RISK ENTER 74200 MILD 12-06-2011 [facility] HYPEREMESIS SALES AND MARKETING COORDINATOR GRAVIDARUM ASSOCIATES, ANTEPARTUM 4611 ACUTE 11-08-2011 [facility] FRONTAL KARY SINUSITIS 10229 BN&JNT D/O 10-04-2011 DARA II MAT BACK OLS PELVIS&LW LIMBS ANTEPARTUM 66843 ASTHMA, 10-14-2009 JAMES UNSPECIFIED KARY EMD , UNSPECIFIED STATUS V700 ROUTINE 10-14-2009 JAMES GENERAL KARY EMD MEDICAL EXAM@HEALTH CARE FACL 3670 HYPERMETROP 09-16-2009 DEB IA VISION 470 DEVIATED 07-16-2009 MIXON, NASAL TYLER G SEPTUM 4730 CHRONIC 07-16-2009 MIXON, MAXILLARY TYLER G SINUSITIS 4733 CHRONIC 07-16-2009 [facility] SPHENOIDAL [facility] SINUSITIS INC 4739 UNSPECIFIED 07-16-2009 PATHOLOGY & SINUSITIS CYTOLOGY LAB 29642 OTHER 07-16-2009 [facility] DISEASES OF [facility] HOS[facility] NASAL INC CAVITY AND SINUSES 7380 ACQUIRED 07-16-2009 MIXON DEFORMITY TYLER [place] OF NOSE V7283 OTHER 07-13-2009 [facility] SPECIFIED [facility] PRE-OPERATI INC VE EXAMINATION 6264 IRREGULAR 07-03-2009 ASSINIBOINE AND [place] TRIBES MENSTRUAL OBSTETRICS CYCLE AND GYNECOLOGY 4732 CHRONIC 07-02-2009 MIXON, ETHMOIDAL TYLER G SINUSITIS 4610 ACUTE 05-21-2009 MIXON, MAXILLARY TYLER G SINUSITIS 83590 MODERATE 05-18-2009 ASSINIBOINE AND [place] TRIBES DYSPLASIA OBSTETRICS OF CERVIX AND GYNECOLOGY V1589 OTH SPEC 05-18-2009 PATHOLOGY & PERS HX CYTOLOGY PRESENTING LAB [facility] OTH 7291 UNSPECIFIED 03-31-2009 JAMES MYALGIA KARY EMD AND MYOSITIS 6926 CONTACT 03-23-2009 [facility] DERMATITIS& KARY EMD OTHER [place] DUE TO PLANTS 6929 CONTACT 03-21-2009 RERE DERMATITIS& EMERGENCY OTHER SERVICES [place] DUE ASSOCIATES UNSPEC CAUSE 77724 ASTHMA 02-24-2009 JAMES UNSPECIFIED KARY EMD WITH EXACERBATIO N 54776 FEVER 02-24-2009 [place] UNSPECIFIED [facility] 7862 COUGH 02-24-2009 [facility] INC V2543 SURVEILLANC 02-18-2009 ASSINIBOINE AND [place] TRIBES E PREV PRSC OBSTETRICS IMPL AND SUBDERMAL GYNECOLOGY CONTRACEPT V0389 NEED PROPH 02-02-2009 PATIENT VACC FIRST PHYS AGAINST OTH SPEC VACC 2331 CARCINOMA 01-05-2009 ASSINIBOINE AND GR[place] TRIBES IN SITU OF OBSTETRICS CERVIX AND UTERI GYNECOLOGY V0489 NEED PROPH 11-03-2008 PATIENT VACCINATION FIRST PHYS &[place] 04048 PAIN IN 09-11-2008 RADIOLOGY JOINT, ASSOCIATES LOWER LEG PSC 7823 EDEMA 09-11-2008 RADIOLOGY ASSOCIATES PSC V1559 PERSONAL 09-11-2008 RADIOLOGY HISTORY OF ASSOCIATES OTHER [facility] INJURY 9597 INJURY 09-05-2008 PATIENT OTHER&UNSPE FIRST PHYS CIFIED KNEE LEG ANKLE&FOOT 84389 PAP SMER 08-26-2008 ASSINIBOINE AND [place] TRIBES CERV OBSTETRICS W/ATYPICAL AND SQUAMOUS GYNECOLOGY CELLS UNDET 7295 PAIN IN 08-25-2008 PATIENT SOFT FIRST PHYS TISSUES OF LIMB 6826 CELLULITIS 08-22-2008 PATIENT AND ABSCESS FIRST PHYS OF LEG EXCEPT FOOT 8820 OPEN WOUND 08-18-2008 R[facility] HAND NO EMERGENCY FINGER SERVICES ALONE W/O ASSOCIATES MENTION COMP 8910 OPEN WOUND 08-18-2008 RERE KNEE EMERGENCY LEG&ANK SERVICES WITHOUT ASSOCIATES MENTION COMP 50853 UNSPECIFIED 07-31-2008 DEB ACUTE VISION CONJUNCTIVI TIS V016 CONTACT 05-22-2008 PATHOLOGY & WITH OR CYTOLOGY EXPOSURE TO LAB VENEREAL DISEASES V7231 ROUTINE 05-22-2008 ASSINIBOINE AND [place] TRIBES GYNECOLOGIC OBSTETRICS AL AND EXAMINATION GYNECOLOGY 17414 SHORTNESS 03-31-2008 PATIENT OF BREATH FIRST PHYS 19459 ABDOMINAL 02-01-2008 ASSINIBOINE AND [place] TRIBES PAIN, LEFT OBSTETRICS LOWER AND QUADRANT GYNECOLOGY 5206 DISTURBANCE 10-18-2007 [facility] IN TOOTH FOR ERUPTION ORAL&MAXILL OFACIAL SURGERY V255 INSERTION 06-06-2007 ASSINIBOINE AND GROS V[place]RE TRIBES OF OBSTETRICS IMPLANTABLE AND SUBDERMAL GYNECOLOGY CONTRACEPTI VE V4552 PRESENCE OF 06-06-2007 ASSINIBOINE AND GROS V[place]RE TRIBES SUBDERMAL OBSTETRICS CONTRACEPTI AND VE DEVICE GYNECOLOGY 7881 DYSURIA 05-31-2007 ASSINIBOINE AND GROS V[place]RE TRIBES OBSTETRICS AND GYNECOLOGY 94851 PAP SMER 05-08-2007 ASSINIBOINE AND GROS V[place]RE TRIBES CERV W/HI OBSTETRICS GRADE AND SQUAMOUS GYNECOLOGY INTRAEPITH LES 5997 HEMATURIA 04-05-2007 [facility] [facility] Medications Na ND Rx Da Fi Fi [...] TA 10 7- 1- 00 01 ve FL 47 20 20 17 AI 01 17 [...] OL #5 33 91 50 PO WD ME 00 04 04 0 21 6 EA 17 LA Ac TH 78 -2 -[address] 38 WS ti YL 15 9- 9- 00 SI 90 ON ve NE 02 20 20 DE ED 20 10 [...] ET OF CY NT HI AN A 60 [...] E OF CY NT HI AN A 16 02 02 00 20 10 EA 16 LE Ac 71 -1 -[address] 44 WI ti 40 9- 6- 00 SI 99 S ve 23 20 20 DE JR 20 10 10 [address] AR IG MA HT CY E OF CY NT HI AN A 00 12 02 01 28 28 WA 70 LE Ac 43 -2 -1 .0 L- 51 WE ti 00 1- 1- 00 MA 19 LL ve 53 20 20 RT 5 EN 01 09 10 4 PH JR AR MA TH CY OM #5 L 91 68 02 02 00 20 10 EA [...] 1- 1- 00 SI 89 S ve NE 02 20 20 DE JR ED 20 10 10 NI 7 PH DW SO AR IG LO MA HT NE CY E 4 OF MG CY NT DO HI SE AN PK A IB 68 01 01 00 60 15 WA 70 LE Ac UP 64 -1 -2 .0 L- 54 WI ti RO 50 2- 8- 00 MA 00 S ve FE 22 20 20 RT 0 JR N 15 10 10 60 [address] 0 AR IG MG MA HT CY E TA BL #5 ET 91 NE 00 01 01 00 39 10 EA [...] MA TH CY OM #5 L 91 60 12 12 00 12 3 WA 70 LE Ac 25 -0 -1 0. L- 48 WI ti 80 1- 7- 00 MA 15 S ve 23 20 20 0 RT 0 JR 91 09 09 6 PH DW AR IG MA HT CY E #5 91 NE 61 12 12 00 10 16 WA 70 LE Ac OM 31 -0 -1 .0 L- 48 WI ti YC 40 1- 7- 00 MA 14 S ve IN 64 20 20 RT 5 JR -P 51 09 09 OL 1 PH DW YM AR IG YX MA HT IN CY E -H C #5 EA 91 R SCHUMACHER SP ME 00 12 12 00 21 5 WA 70 LE Ac TH 60 -0 -1 .0 L- 48 WI ti YL 34 1- 7- 00 MA 14 S ve NE 59 20 20 RT 3 JR ED 31 09 09 NI 5 PH DW SO AR IG LO MA HT NE CY E 4 #5 MG 91 DO SE PK 59 12 12 00 8. 16 WA [...] 00 10 5 TO 71 KA Ac FL 00 -3 -0 .0 TA 31 LF ti FL 40 0- 8- 00 L 62 ve U 80 20 20 CA 75 08 09 09 RE FL 5 NA MG PH C AR CA MA PS CY UL E #5 EP 49 06 07 00 2. 2 TO 70 KA Ac IP 50 -2 -0 00 TA 51 LF ti EN 20 2- 2- 0 L 72 ve 50 20 20 CA 2- 00 09 09 RE FL PA 2 NA K PH C 0. AR 3 MA MG CY AU #5 TO -I [place] CT 49 06 07 00 60 15 TO 70 KA Ac 88 -1 -0 .0 TA 50 LF ti 40 9- 2- 00 L 05 ve 77 20 20 CA 80 09 09 RE FL 5 NA PH C AR MA CY #5 IB 68 06 06 00 90 30 WA 70 TH Ac UP 64 -0 -1 .0 L- 23 OR ti RO 50 5- 8- 00 MA 52 NT ve FE 22 20 20 RT 3 ON N 25 09 09 80 4 PH SH 0 AR EL MG MA BY CY TA BL #5 ET 91 00 06 06 00 10 5 TO [...] AR NT MA ME CY NT #5 SCHUMACHER 53 06 06 00 6. 3 WA 70 WI Ac LF 74 -0 -1 00 L- 22 CK ti AM 60 1- 8- 0 MA 96 ER ve ET 27 20 20 RT 3 HO 20 09 09 JE XA 5 PH FF ZO AR RE LE MA Y -T CY MP #5 DS 91 TA BL ET 00 06 06 00 10 2 WA 44 WI Ac 40 -0 -1 .0 L- 77 CK ti 60 1- 8- 00 MA 12 ER ve 35 20 20 RT 4 70 09 09 JE 5 PH FF AR RE MA Y CY #5 91 NA 00 03 06 01 30 15 WA 70 LE Ac NE 09 -0 -0 .0 L- 12 WE [...] 00 14 7 TO 70 KA Ac NE 11 -2 -0 .0 TA 30 LF ti OF 10 7- 4- 00 L 46 ve LO 12 20 20 CA XA 70 09 09 RE FL CI 1 NA N PH C HC AR L MA 50 CY 0 MG #5 TA B NE 68 12 05 01 30 8 TO 66 KA Ac OM 38 -0 -2 .0 TA 01 LF ti ET 20 9- 1- 00 L 55 ve JOHNSON 04 20 20 CA ZI 11 08 09 RE FL NE 0 NA PH C 25 AR [...] 20 20 RT 5 10 09 09 FL HC 1 PH NA L AR C 50 MA CY MG #5 TA 91 BL ET NE 00 04 05 00 14 14 WA [...] 20 CA 1 50 09 09 RE FL GM 4 NA PH C CA AR PL MA ET CY #5 59 01 04 01 8. 30 TO 66 SC Ac 31 -1 -0 50 TA 26 JOHNSON ti 00 2- 9- 0 L 01 CK ve 57 20 20 CA 92 09 09 RE BR 0 IA PH N AR MA CY #5 NE 68 03 03 00 10 5 TO [...] 00 30 15 WA 70 LE Ac NE 09 -0 -2 .0 L- 12 WE ti OX 30 1- 6- 00 MA 73 LL ve EN 14 20 20 RT 8 EN 91 09 09 50 0 PH JR 0 AR MG MA TH CY OM TA BL #5 L ET 91 NE 68 12 12 00 30 8 TO 66 KA Ac OM 38 -0 -1 .0 TA 01 LF ti ET 20 9- 8- 00 L 55 ve JOHNSON 04 20 20 CA ZI 11 08 08 RE FL NE 0 NA PH C 25 AR MA MG CY TA #5 BL ET 00 10 10 00 15 4 PH 65 KA Ac 40 -0 -2 .0 AR 52 LF ti 62 9- 3- 00 MC 19 ve 04 20 20 AR 00 08 08 E FL 1 PH NA AR C MA CY [...] MG #5 91 CA PS UL E ME 00 07 08 00 21 6 WA 69 MA Ac TH 60 -3 -1 .0 L- 81 X ti YL 34 1- 4- 00 MA 49 DO ve NE 59 20 20 RT 2 NA ED 31 08 08 LD NI 5 PH P SO AR LO MA NE CY 4 #5 MG 91 DO SE PK CH 00 07 08 00 47 15 WA 69 MA Ac LO 11 -3 -1 3. L- 81 X ti RH 62 1- 4- 00 MA 49 DO ve EX 00 20 20 0 RT 3 NA ID 11 08 08 LD IN 6 PH P E AR 0. MA 12 CY % RI #5 NS 91 E NU 00 11 08 00 3. 84 [...] bl AR e MA CY #5 91 NU 00 11 03 02 1. 28 PH 63 No Ac VA 05 -2 -2 00 AR 18 t ti RI 20 6- 6- 0 MC 95 Av ve NG 27 20 20 AR ai 30 07 08 E la VA 3 PH bl GI AR e NA MA L CY RI NG 00 01 03 00 6. 2 WA [...] MA 0 CY MG TA BL ET AC 00 01 03 00 6. 2 WA 44 No Ac ET 09 -1 -2 00 L- 65 t ti AM 30 7- 5- 0 MA 62 Av ve IN 15 20 20 RT 8 ai OP 01 08 08 la HE 0 PH bl N- AR e CO MA D CY #3 #5 TA 91 BL ET NU 00 11 03 01 1. 28 PH 63 No Ac VA 2 -2 00 AR 18 t ti RI 20 6- 5- 0 MC 95 Av ve NG 27 20 20 AR ai 30 07 08 E la VA 3 PH bl GI AR e NA MA L CY RI NG Procedures Procedure DOS Code Location Performer Comment DRAINAGE [id number] GNOSTICIST GNOSTICIST AMNIOTIC [address] [place] [address] THERAPEUT POC EARLE/ART OP DELIVERY [id number] GNOSTICIST GNOSTICIST PRODUCTS [address] [place] [address] CONCEPTIO N EXTERNAL OTHER 7359 [facility] MANUALLY 4 GNOSTICIST GNOSTICIST ASSISTED HOSP HOSP DELIVERY INTRANASA 222 [facility] TRAN L 0 [facility] MEM [facility]OS[facility] ANTROTOMY INC INC OTHER 2169 MARC TRAN TURBINECT 0 MEM HOS[facility] MEM HOSP AUGUSTINE INC INC OTHER 2188 MARC TRAN SEPTOPLAS 0 MEM H[facility] TY INC INC OTHER 2219 [facility] TRAN DIAGNOSTI 0 [facility] C INC INC PROCEDURE S ON NASAL SINUSES Encounters Encounter Start End Date Code Location Performer Type Date HOSPITAL MARC Dinh 7 [facility] MARC Dinh 7 [facility] GNOSTICIST - 7 7 [facility] INPATIENT [facility] GNOSTICIST - 7 7 [facility] M[facility] - [facility] 7 [facility] GNOSTICIST [facility] 6 6 [facility] - [facility] G[facility]ICIST [facility]PATIENT [facility] CENTR[facility] - 4 4 GNOSTICIST OUTPATIEN [facility] CENTRAL - 4 4 GNOSTICIST OUTPATIEN [facility] CENTRAL - 4 4 GNOSTICIST OUTPATIEN [facility] CENTRAL - 3 3 GNOSTICIST OUTPATIEN [facility]TR[facility] - 3 3 [facility] - 3 [facility] 0 [facility] - 0 0 [facility] - 9 9 [facility] - 9 9 [facility]
--- OUTSIDE RECORDS SUMMARY | 2017-02-15 19:07 | External Medical Summary Rpt | CCD ---
Author Author , OUMOU COELLO Address Unknown Phone [email or web address] ([email or web address] Care Team Providers Care Organizational Consultant Name Role Phone ALEA COSBY Unavailable Unavailable [facility] Unavailable Unavailable [facility], [facility] Unavailable Unavailable [facility], [facility]ALTH [place] [place] SCIENTOLOGY LABORIST Unavailable Unavailable SERVICE, SCIENTOLOGY LABORIST SERVICE [facility], Unavailable Unavailable [facility] Unavailable Unavailable PHYS [facility], [facility] & Unavailable Unavailable DUBILIER, [facility] QUINTIN DALY, Unavailable Unavailable QUINTIN DALY DOUGLAS, Unavailable Unavailable ALEXANDREA ALTAMIRANO [facility] [place]available [place], [facility] [place] [facility] [place] [facility] A[facility]STA, A[facility]STA Unavailable Unavailable [facility] Unavailable [facility] Unavailable Unavailable INC, [facility] Unavailable [facility]available [facility] JUJU HERNANDEZ JR, Unavailable Unavailable JUJU HERNANDEZ JR, BRETT A, Unavailable Unavailable KRISTINA BANKS [facility], Unavailable Unavailable [facility] LUCAS MEYER, Unavailable Unavailable LUCAS MEYER [facility], Unavailable Unavailable [facility] Unavailable Unavailable HOLD[facility], [facility] Unavailable Unavailable [facility] OF [employer], LABORATORY [employer] OF AM TYLER MIXON, Unavailable Unavailable TYLER MIXON JR, THOMAS, Unavailable Unavailable TERESSA SAEED JR, LEWIS Unavailable Unavailable KARY CASTRO, Unavailable Unavailable KARY RAMIREZ [facility] MATERIALS PLANNING ANALYST Unavailable Unavailable ASSOCIATES,, [facility]ERIAL[facility] PLANNING [facility]NALYST [facility], [facility] [place] MATERIALS PLANNING ANALYST, Unavailable Unavailable [facility]SC, [facility] [place] MATERIALS PLANNING ANALYST, [facility] Unavailable Unavailable INTERNAL MED, [facility] INTERNAL MED MEDICAL DIAGNOSTIC Unavailable Unavailable LAB [...] [facility] Unavailable Unavailable EQUIP[facility], 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 FOLLOW-UP [id number] PAIN IN 05-27-2016 VIRTUAL RIGHT HIP RADIOLOGIC PROFESSIO Z391 ENCNTR FOR 05-27-2016 [facility] MEDICAL LACTATING INC. MOTHER [id number] MATERNAL 05-26-2016 [facility] EXCESS MATERIALS PLANNING ANALYST ASSOCIATES, GROWTH UNS TRI NA/UNS O80 ENCOUNTER 05-26-2016 [facility] FOR ANESTHESIA FULL-TERM PSC UNCOMPLICAT ED DELIVERY O9902 ANEMIA 05-26-2016 [facility] [place] COMPLICATIN MATERIALS PLANNING ANALYST G ASSOCIATES, CHILDBIRTH M29476 OTH DZ 05-26-2016 SCI[facility] BLOOD & BFO ANESTHESIA IMMUN MECH PSC COMP PREG UNS TRI Z370 SINGLE LIVE 05-26-2016 [place] MATERIALS PLANNING ANALYST ASSOCIATES, [id number] L & D COMP 05-25-2016 [facility] C[facility] NECK W/O [facility] COMPRS NA/UNS Z3A39 39 WEEKS 05-25-2016 [facility] [place] Z3483 ENC 05-24-2016 [place] SUPERVISION MATERIALS PLANNING ANALYST OTH NORMAL ASSOCIATES, 3 TRIMESTER I75347 SUP PREG 05-10-2016 [place] W/OTH POOR MATERIALS PLANNING ANALYST REPRODUCTIV ASSOCIATES, E/OB HX THIRD TRI O479 FALSE LABOR 05-07-2016 [facility] HEALTH UNSPECIFIED [place] Z3A00 WEEKS OF 05-07-2016 [facility] [place] NOT SPECIFIED K645 PERIANAL 04-14-2016 [facility] THROMBOSIS Z331 04-14-2016 [facility] INCIDENTAL O2243 HEMORRHOIDS 03-30-2016 [facility] IN [facility] THIRD TRIMESTER Z3A31 31 WEEKS 03-30-2016 [facility]ENCIO [facility]ATION [facility], OF [facility] Z3480 ENC 03-08-[address] [facility] NORMAL HOLDINGS PREG UNS TRIMESTER J069 ACUTE UPPER 03-03-2016 [facility] INTERNAL INFECTION MED UNSPECIFIED I85948 SUP PREG 02-09-2016 [place] W/OTH POOR MATERIALS PLANNING ANALYST REPRODUCTIV ASSOCIATES, E/OB HX 2ND TRI K11630 SMOKING 01-12-2016 [place] TOBACCO MATERIALS PLANNING ANALYST COMP ASSOCIATES, FIRST TRIMESTER Z36 ENCOUNTER 01-12-2016 [place] FOR MATERIALS PLANNING ANALYST ASSOCIATES, SCREENING OF MOTHER J309 ALLERGIC 11-27-2015 [facility] UNSPECIFIED INTERNAL MED N61434 SUP PREG 11-24-2015 [facility] W/OTH POOR MATERIALS PLANNING ANALYST REPRODUCTIV ASSOCIATES, E/OB HX 1ST TRI U86593 SUPERVISION 10-27-2015 [facility] PREG W/HX MATERIALS PLANNING ANALYST PRE-TERM ASSOCIATES, LABOR FIRST TRI A57584 ENCOUNTER 10-27-2015 [facility], SURGICAL GARMENT INSPECTOR EXAM LLC GENERAL RTN W/O ABNORMAL FIND Z113 ENCOUNTER 10-27-2015 [facility], SCREEN LLC INFECTIONS SEXL MODE TRANSMISSN Z3481 ENC 10-27-2015 LAB [facility] SUPERVISION [facility] OT NORMAL HOLDINGS 1 TRIMESTER N809 ENDOMETRIOS 05-15-2015 [facility] UNSPECIFIED PHYS PSC R102 PELVIC AND 05-15-2015 VIRTUAL PERINEAL RADIOLOGIC PAIN PROFESSIO R938 ABNORMAL 05-15-2015 VIRTUAL FIND ON DX RADIOLOGIC IMAGING [facility] PROFESSIO SPEC BODY STRCT O021 MISSED 05-13-2015 [place] MATERIALS PLANNING ANALYST ASSOCIATES, O034 INCOMPLETE 05-13-2015 [facility] SPONTANEOUS [facility] & DUBILIER W/O COMPLICATIO N Z3A09 9 WEEKS 05-13-2015 [place] GESTATION MATERIALS PLANNING ANALYST OF ASSOCIATES, T78595 ENCOUNTER 05-12-2015 LABORATORY FOR Needl PREPROCEDUR OF AM AL EXAMINATION O200 THREATENED 04-21-2015 [place] MATERIALS PLANNING ANALYST ASSOCIATES, J029 ACUTE 03-03-2015 [facility] INTERNAL UNSPECIFIED MED J042 ACUTE 03-03-2015 [facility] HEITIS INTERNAL MED L55230 ACUTE 03-02-2015 [facility] SUPPURATIVE [facility] W/O HOSPITAL RUPT EAR DRUM UNS EAR H25353 PAIN IN 02-23-2015 [facility] LEFT KNEE [facility] L51858 PAIN IN 02-23-2015 [facility] UNSPECIFIED HOME KNEE MEDICAL EQUIPME 4660 ACUTE 08-15-2014 [facility] BRONCHITIS [facility] 03033 ACUTE 08-11-2014 [facility] SEROUS [facility] MEDIA 4779 ALLERGIC 08-11-2014 [facility] RHINITIS [facility] UNSPECIFIED 72894 MATERNAL 12-27-2013 [facility] MENTAL D/O MATERIALS PLANNING ANALYST ASSOCIATES, COND/COMPLI CATION 72922 TOBACCO USE 12-20-2013 [facility] D/O COMP MATERIALS PLANNING ANALYST PG ASSOCIATES, CHILDBIRTH/ PP DELIVERED 650 NORMAL 12-20-2013 [facility] DELIVERY [facility] 56552 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 [facility] CONGENITAL/ MATERIALS PLANNING ANALYST ACQUIRED ASSOCIATES, ABNORM CERVIX W/DELIVERY V270 OUTCOME OF 12-20-2013 [facility] DELIVERY SCIENT[facility]Y SINGLE HOSP LIVEBORN 92564 OTHER 12-17-2013 [facility] THREATENED MATERIALS PLANNING ANALYST LABOR, ASSOCIATES, ANTEPARTUM 95721 THREATENED 12-15-2013 [facility] PREMATURE SCIENT[facility]Y LABOR HOSP ANTEPARTUM 6259 UNSPEC 12-11-2013 SCI[facility] SYMPTOM LABORIST ASSOC SERVICE W/FEMALE GENITAL ORGANS 10609 OTHER 12-11-2013 SCI[facility] SPECIFED LABORIST COMPLICATIO SERVICE N ANTEPARTUM 60504 OT CURRENT 12-11-2013 [facility] MAT CONDS SCIENTOLOGY CLASSIFIABL HOSP E ELSW ANTPRTM V221 SUPERVISION 12-10-2013 MEDICAL OF OTHER DIAGNOSTIC NORMAL LAB LLC V2341 SUPERVISION 12-10-2013 [facility] MATERIALS PLANNING ANALYST W/HISTORY ASSOCIATES, PRE-TERM LABOR 40685 TOB USE D/O 10-22-2013 [facility] COMP PG MATERIALS PLANNING ANALYST /PP ASSOCIATES, ANTEPARTM COND/COMP V8281 SPECIAL 08-27-2013 [facility] SCREENING MATERIALS PLANNING ANALYST, PSC FOR OSTEOPOROSI S 81142 OT 07-16-2013 [facility] CONGENITAL/ MATERIALS PLANNING ANALYST ACQ ABNORM ASSOCIATES, CERV ANTPRTM COND/COMP 42160 UTERINE 06-18-2013 DARA II SIZE DATE O DISCREPANCY ANTPRTM COND/COMPL V745 SCREENING 06-18-2013 [facility] EXAMINATION [facility] 31137 UNSPECIFIED 05-07-2013 [facility] 462 ACUTE 05-07-2013 [facility] 4659 ACUTE URIS 05-07-2013 [facility] OF PHYSICIANS UNSPECIFIED GROUP SITE V242 ROUTINE 07-03-2012 DAMION DURHAM FOLLOW-UP V2549 SURVEILLANC 07-03-2012 DAMION DURHAM E OT PREV PRSC CONTRACEPT METHOD V7241 07-03-2012 DAMION DURHAM EXAMINATION OR TEST NEGATIVE RESULT 3829 UNSPECIFIED 04-06-2012 [facility] OTITIS [facility] MEDIA INC V222 04-06-2012 [facility] STATE, [facility] INCIDENTAL INC 85726 OTH 04-03-2012 [facility] KNOWN/SUSPE MATERIALS PLANNING ANALYST CTED ASSOCIATES, ABNORMALITY -NEC-APC/C 7932 NONSPC ABN 04-03-2012 [facility] FINDNG MATERIALS PLANNING ANALYST RAD&OTH ASSOCIATES, EXAM OTH INTRTHOR ORGN V2389 SUPERVISION 12-16-2011 OF OTHER DIAGNOSTICC HIGH-RISK ENTER 24321 MILD 12-06-2011 [facility] HYPEREMESIS MATERIALS PLANNING ANALYST GRAVIDARUM ASSOCIATES, ANTEPARTUM 4611 ACUTE 11-08-2011 [facility] FRONTAL KARY SINUSITIS 68638 BN&JNT D/O 10-04-2011 DARA II MAT BACK OLS PELVIS&LW LIMBS ANTEPARTUM 13405 ASTHMA, 10-14-2009 JAMES UNSPECIFIED KARY EMD , UNSPECIFIED STATUS V700 ROUTINE 10-14-2009 JAMES GENERAL KARY EMD MEDICAL EXAM@HEALTH CARE FACL 3670 HYPERMETROP 09-16-2009 DEB IA VISION 470 DEVIATED 07-16-2009 MIXON, NASAL TYLER G SEPTUM 4730 CHRONIC 07-16-2009 MIXON, MAXILLARY TYLER G SINUSITIS 4733 CHRONIC 07-16-2009 [facility] SPHENOIDAL [facility] SINUSITIS INC 4739 UNSPECIFIED 07-16-2009 PATHOLOGY & SINUSITIS CYTOLOGY LAB 82077 OTHER 07-16-2009 [facility] DISEASES OF [facility] NASAL INC CAVITY AND SINUSES 7380 ACQUIRED 07-16-2009 MIXON DEFORMITY TYLER Hoyos OF NOSE V7283 OTHER 07-13-2009 [facility] SPECIFIED [facility] PRE-OPERATI INC VE EXAMINATION 6264 IRREGULAR 07-03-2009 [facility] MENSTRUAL OBSTETRICS CYCLE AND GYNECOLOGY 4732 CHRONIC 07-02-2009 MIXON, ETHMOIDAL TYLER G SINUSITIS 4610 ACUTE 05-21-2009 MIXON, MAXILLARY TYLER G SINUSITIS 70524 MODERATE 05-18-2009 [facility] DYSPLASIA OBSTETRICS OF CERVIX AND GYNECOLOGY V1589 OTH SPEC 05-18-2009 PATHOLOGY & PERS HX CYTOLOGY PRESENTING LAB [facility] OTH 7291 UNSPECIFIED 03-31-2009 JAMES MYALGIA KARY EMD AND MYOSITIS 6926 CONTACT 03-23-2009 [facility] DERMATITIS& KARY EMD OTHER [facility] DUE TO PLANTS 6929 CONTACT 03-21-2009 R[facility] DERMATITIS& EMERGENCY OTHER SERVICES [facility] DUE ASSOCIATES UNSPEC CAUSE 30614 ASTHMA 02-24-2009 JAMES UNSPECIFIED KARY EMD WITH EXACERBATIO N 26168 FEVER 02-24-2009 [facility] UNSPECIFIED MEDICAL IMAGING ASSOCIATES 7862 COUGH 02-24-2009 [facility] INC V2543 SURVEILLANC 02-18-2009 [facility] E PREV PRSC OBSTETRICS IMPL AND SUBDERMAL GYNECOLOGY CONTRACEPT V0389 NEED PROPH 02-02-2009 PATIENT VACC FIRST PHYS AGAINST OTH SPEC VACC 2331 CARCINOMA 01-05-2009 [facility] IN SITU OF OBSTETRICS CERVIX AND UTERI GYNECOLOGY V0489 NEED PROPH 11-03-2008 PATIENT VACCINATION FIRST PHYS &[place] [address]6213 PAIN IN 09-11-2008 RADIOLOGY JOINT, ASSOCIATES LOWER LEG PSC 7823 EDEMA 09-11-2008 RADIOLOGY ASSOCIATES PSC V1559 PERSONAL 09-11-2008 RADIOLOGY HISTORY OF ASSOCIATES OTHER [facility] INJURY 9597 INJURY 09-05-2008 PATIENT OTHER&UNSPE FIRST PHYS CIFIED KNEE LEG ANKLE&FOOT 41435 PAP SMER 08-26-2008 [facility] CERV OBSTETRICS W/ATYPICAL AND SQUAMOUS GYNECOLOGY CELLS UNDET 7295 PAIN IN 08-25-2008 PATIENT SOFT FIRST PHYS TISSUES OF LIMB 6826 CELLULITIS 08-22-2008 PATIENT AND ABSCESS FIRST PHYS OF LEG EXCEPT FOOT 8820 OPEN WOUND 08-18-2008 [facility] HAND NO EMERGENCY FINGER SERVICES ALONE W/O ASSOCIATES MENTION COMP 8910 OPEN WOUND 08-18-2008 RERE KNEE EMERGENCY LEG&ANK SERVICES WITHOUT ASSOCIATES MENTION COMP 86824 UNSPECIFIED 07-31-2008 DEB ACUTE VISION CONJUNCTIVI TIS V016 CONTACT 05-22-2008 PATHOLOGY & WITH OR CYTOLOGY EXPOSURE TO LAB VENEREAL DISEASES V7231 ROUTINE 05-22-2008 [facility] GYNECOLOGIC OBSTETRICS AL AND EXAMINATION GYNECOLOGY 49073 SHORTNESS 03-31-2008 PATIENT OF BREATH FIRST PHYS 79609 ABDOMINAL 02-01-2008 [facility] PAIN, LEFT OBSTETRICS LOWER AND QUADRANT GYNECOLOGY 5206 DISTURBANCE 10-18-2007 [facility] IN TOOTH FOR ERUPTION ORAL&MAXILL OFACIAL SURGERY V255 INSERTION 06-06-2007 [facility] OF OBSTETRICS IMPLANTABLE AND SUBDERMAL GYNECOLOGY CONTRACEPTI VE V4552 PRESENCE OF 06-06-2007 [facility] SUBDERMAL OBSTETRICS CONTRACEPTI AND VE DEVICE GYNECOLOGY 7881 DYSURIA 05-31-2007 [facility] OBSTETRICS AND GYNECOLOGY 09364 PAP SMER 05-08-2007 [facility] CERV W/HI OBSTETRICS GRADE AND SQUAMOUS GYNECOLOGY INTRAEPITH LES 5997 HEMATURIA 04-05-2007 [facility] Medications Na ND Rx [...] TA 10 7- 1- 00 01 ve SC 47 20 20 17 AI 01 17 [...] 00 10 5 TO 71 KA Ac SC 00 -3 -0 .0 TA 31 LF ti FL 40 0- 8- 00 L 62 ve U 80 20 20 CA 75 08 09 09 RE SC 5 NA MG PH C AR CA MA PS CY UL E #5 EP 49 06 07 00 2. 2 TO 70 KA Ac IP 50 -2 -0 00 TA 51 LF ti EN 20 2- 2- 0 L 72 ve 50 20 20 CA 2- 00 09 09 RE SC PA 2 NA K PH C 0. AR 3 MA MG CY AU #5 TO -I [place] 49 06 07 00 60 15 TO 70 KA Ac 88 -1 -0 .0 TA 50 LF ti 40 9- 2- 00 L 05 ve 77 20 20 CA 80 09 09 RE SC 5 NA PH C AR MA CY [...] 20 CA XA 70 09 09 RE SC CI 1 NA N PH C HC AR L MA 50 CY 0 MG #5 TA B IA 68 12 05 01 30 8 TO 66 KA Ac OM 38 -0 -2 .0 TA 01 LF ti ET 20 9- 1- 00 L 55 ve JOHNSON 04 20 20 CA ZI 11 08 09 RE SC NE 0 NA PH C 25 AR [...] 20 20 RT 5 10 09 09 SC HC 1 PH NA L AR C [...] 20 CA 1 50 09 09 RE SC GM 4 NA PH C CA AR [...] 20 CA ZI 11 08 08 RE SC NE 0 NA PH C 25 AR MA MG CY TA #5 BL ET 00 10 10 00 15 4 PH 65 KA Ac 40 -0 -2 .0 AR 52 LF ti 62 9- 3- 00 MC 19 ve 04 20 20 AR 00 08 08 E SC 1 PH NA AR C MA CY [...] Procedure DOS Code Location Performer Comment DRAINAGE [id number] SCIENT[facility]Y SCIENTOLOGY [facility] [address] [place] [address] THERAPEUT POC EARLE/ART OP DELIVERY [id number] SCIENTOLOGY SCIENT[facility]Y [employer] [address] [place] [address] CONCEPTIO N EXTERNAL OTHER 7359 [facility] CENTRAL MANUALLY 4 SCIENTOLOGY SCIENTOLOGY ASSISTED HOSP HOSP DELIVERY INTRANASA 222 MARC [...] HOSPITAL MARC Dinh 7 MEM H[facility] OUTPATIEN [facility] MARC Dinh 7 [facility] SCIENTOLOGY - 7 7 HEALTH INPATIENT [facility] - 7 [facility] - [facility] OUTPATIEN [facility] SCIENTOLOGY - 6 6 HEALTH OUTPATIEN [facility] - 5 5 [facility] - 4 4 SCIENTOLOGY INPATIENT [facility] CENTRAL - 4 4 SCIENTOLOGY OUTPATIEN [facility] CENTRAL - 4 4 SCIENTOLOGY OUTPATIEN [facility] CENTRAL - 4 4 SCIENTOLOGY OUTPATIEN [facility] CENTRAL - 3 3 SCIENTOLOGY OUTPATIEN [facility] - 3 3 [facility] - 3 3 [facility] - 0 0 [facility] - 0 0 [facility] - 0 0 [facility] - 0 0 [facility] - 9 9 [facility] MARC - 9 9 [facility]
--- OUTSIDE RECORDS SUMMARY | 2017-02-15 19:08 | External Medical Summary Rpt | CCD ---
Author Author , OUMOU COELLO Address Unknown Phone [email or web address] Immunization Name Date Rout CVX Reac Dose Comm Prov Is Faci e tion ent ider Refu lity Give sed n Hep 05-3 8 999 Hist H149 No H149 B, 0-19 oric ped/ 97 al adol Info rmat ion - Sour ce Unsp ecif ied Hep 10-2 8 999 Hist H149 No H149 B, 2-19 oric ped/ 96 al adol Info rmat ion - Sour ce Unsp ecif ied Hep 09-1 8 999 Hist H149 No H149 B, 0-19 oric ped/ 96 al adol Info rmat ion - Sour ce Unsp ecif ied
--- OUTSIDE RECORDS SUMMARY | 2017-02-15 19:08 | External Medical Summary Rpt | CCD ---
Author Author , OUMOU COELLO Address Unknown Phone [email or web address] Immunization Name Date Rout CVX Reac Dose [...]
--- OUTSIDE RECORDS SUMMARY | 2017-02-15 19:09 | External Medical Summary Rpt ---
Author Author BALBINAMAYRA Mcelroy, [facility] [employer] Address Unknown Phone Unavailable Results Comprehensive metabolic 2000 panel in Serum or Plasma Observa Value Referen Units Interpr Notes Date tion ce etation Range Albumin/G 1.1 - 1.8 No Normal No Sep 10 lobulin informati informati 2016 [Mass on in on in 12:30 AM ratio] in source source Serum or data data Plasma Albumin 3.4 - 5.0 gm/dL Normal No Sep 10 [Mass/vol informati 2016 ume] in on in 12:30 AM Serum or source Plasma data Alkaline 46 - 116 U/L Normal No Sep 10 phosphata informati 2016 se on in 12:30 AM [Enzymati source c data activity/ volume] in Serum or Plasma Bilirubin 0.2 - 1.0 mg/dL Normal No Sep 10 .total informati 2016 [Mass/vol on in 12:30 AM ume] in source Serum or data Plasma Urea 7 - 18 mg/dL Normal No Sep 10 nitrogen informati 2016 [Mass/vol on in 12:30 AM ume] in source Serum or data Plasma Calcium 8.5 - mg/dL Normal No Sep 10 [Mass/vol 10.1 informati 2016 ume] in on in 12:30 AM Serum or source Plasma data Chloride 98 - 107 mmoL/L Normal No Sep 10 [Moles/vo informati 2017 lume] in on in 12:30 AM Serum or source Plasma data Carbon 21.0 - mmoL/L Normal No Sep 10 dioxide, 32.0 informati 2017 total on in 12:30 AM [Moles/vo source lume] in data Serum or Plasma Creatinin 0.55 - mg/dL Normal No Sep 10 e 1.02 informati 2016 [Mass/vol on in 12:30 AM ume] in source Serum or data Plasma Creatinin 50 - 200 ML/MIN Normal No Sep 10 e renal informati 2017 clearance on in 12:30 AM source predicted data by Cockcroft -Gault formula Estimated 59- ML/MIN No REFERENCE Sep 10 informati RANGE: 2017 glomerula on in >60 12:30 AM r source ML/MIN/1. filtratio data 73 SQUARE n rate METERSIf (GF this patient is -A merican, then multiply theresult by 1.210. Globulin 1.3 - 3.2 gm/dL Normal No Sep 10 [Mass/vol informati 2016 ume] in on in 12:30 AM Serum source data Glucose 74 - 106 mg/dL Normal No Sep 10 [Mass/vol informati 2016 ume] in on in 12:30 AM Serum or source Plasma data Potassium 3.5 - 5.1 mmoL/L Normal No Sep 102016 [Moles/vo on in 12:30 AM lume] in source Serum or data Plasma Sodium 136 - 145 mmoL/L Normal No Sep 10 [Moles/vo informati 2016 lume] in on in 12:30 AM Serum or source Plasma data Aspartate 15 - 37 U/L Low No Sep 102016 aminotran on in 12:30 AM sferase source [Enzymati data c activity/ volume] in Serum or Plasma Alanine 12 - 78 U/L Normal No Sep 10 aminotran inform2016 sferase on in 12:30 AM [Enzymati source c data activity/ volume] in Serum or Plasma Protein 6.4 - 8.2 gm/dL Normal No Sep 10 [Mass/vol informati 2016 ume] in on in 12:30 AM Serum or source Plasma data CBC W Auto Differential panel in Blood Observa Value Referen Units Interpr Notes Date tion ce etation Range Basophils 0 - 0.2 K/MM3 Normal No Sep 10 inform2016 [#/volume on in 12:25 AM ] in source Blood by data Automated count Basophils 0.1 - 2.0 % Normal No Sep 10 / inform2016 leukocyte on in 12:25 AM s in source Blood by data Automated count Eosinophi 0.0 - 0.4 K/mm3 Normal No Sep 10 ls informati 2016 [#/volume on in 12:25 AM ] in source Blood by data Automated count Eosinophi 0.1 - % Normal No Sep 10 ls/100 12.0 inform2016 leukocyte on in 12:25 AM s in source Blood by data Automated count Granulocy 1.8 - 7.8 K/mm3 Normal No Maximiliano 24 filiberto informati 2016 [#/volume on in 12:25 AM ] in source Blood by data Automated count Granulocy 37.0 - % Normal No Sep 10 filiberto/100 80.0 informati 2016 leukocyte on in 12:25 AM s in source Blood by data Automated count Hematocri 37.0 - % Normal No Sep 10 t [Volume 47.0 informati 2016 on in 12:25 AM Fraction] source of Blood data Hemoglobi 12.2 - g/dL No No Sep 10 n 16.2 informati informati 2016 [Mass/vol on in on in 12:25 AM ume] in source source Blood data data Lymphocyt 0.7 - 4.5 K/mm3 Normal No Sep 10 es informati 2016 [#/volume on in 12:25 AM ] in source Unspecifi data ed specimen by Automated count Lymphocyt 10 - 50.0 % Normal No Sep 10 es informati 2016 [#/volume on in 12:25 AM ] in source Unspecifi data ed specimen by Automated count Erythrocy 27 - 31.2 pg Normal No Sep 10 te mean inform2016 corpuscul on in 12:25 AM ar source hemoglobi data n [Entitic mass] Erythrocy 31.8 - g/dl Normal No Sep 10 te mean 35.4 informati 2016 corpuscul on in 12:25 AM ar source hemoglobi data n concentra tion [Mass/vol ume] by Automated count Erythrocy 82.2 - fl Normal No Sep 10 te mean 97.8 informati 2016 corpuscul on in 12:25 AM ar volume source [Entitic data volume] by Automated count Monocytes 0.1 - 1.0 K/mm3 Normal No Sep 10 informati 2016 [#/volume on in 12:25 AM ] in source Blood by data Automated count Monocytes 1.7 - 9.3 % Normal No Aug 24 /100 informati 2016 leukocyte on in 12:25 AM s in source Blood by data Automated count Platelet 7.4 - fl Normal No Sep 10 mean 10.4 informati 2016 volume on in 12:25 AM [Entitic source volume] data in Blood by Automated count Platelets 142 - 424 K/mm3 No No Sep 10 informati informati 2016 [#/volume on in on in 12:25 AM ] in source source Blood data data Erythrocy 4.2 - 5.4 M/mm3 Normal No Sep 10 filiberto informati 2016 [#/volume on in 12:25 AM ] in source Amniotic data fluid Erythrocy 11.5 - % Normal No Sep 10 te 17.5 inform2016 distribut on in 12:25 AM ion width source [Entitic data volume] by Automated count Leukocyte 4.8 - K/MM3 Normal No Sep 10 s 10.8 inform2016 [#/volume on in 12:25 AM ] in source Blood data Choriogonadotropin.beta subunit [Units] in 24 hour Urine Observa Value Referen Units Interpr Notes Date tion ce etation Range Choriogon NEG No No No Sep 10 adotropin informati informati informati 2017 .beta on in on in on in 12:25 AM subunit source source source [Units] data data data in 24 hour Urine Urinalysis dipstick W Reflex Microscopic panel in Urine Observa Value Referen Units Interpr Notes Date tion ce etation Range Appeara SL CLEAR No No No Sep 10 nce of CLOUDY informa informa informa 2017 Urine tion in tion in tion in 12:25 source source source AM data data data Bilirub NEGATIV NEG No No No Sep 10 in E informa informa informa 2016 [Presen tion in tion in tion in 12:25 ce] in source source source AM Urine data data data by Test strip Erythro NEGATIV NEG No No No Sep 10 cytes E informa informa informa 2016 [Presen tion in tion in tion in 12:25 ce] in source source source AM Urine data data data Color YELLOW YELLOW No No No Sep 10 of informa informa informa 2017 Urine tion in tion in tion in 12:25 source source source AM data data data Glucose NEG No No No Sep 10 [Mass/vol informati informati informati 2017 ume] in on in on in on in 12:25 AM Urine by source source source Test data data data strip Ketones NEGATIV NEG mg/dL No No Sep 10 E informa informa 2016 [Presen tion in tion in 12:25 ce] in source source AM Urine data data by Automat ed test strip Mucus NEGATIV NEG No No No Sep 10 [Presen E informa informa informa 2016 ce] in tion in tion in tion in 12:25 Urine source source source AM sedimen data data data t by Light microsc opy Nitrite NEGATIV NEG No No No Sep 10 E informa informa informa 2017 [Presen tion in tion in tion in 12:25 ce] in source source source AM Urine data data data by Test strip pH of 5.0 - 8.5 No Normal No Aug 24 Urine informati informati 2017 on in on in 12:25 AM source source data data Protein NEG mg/dL No No Sep 10 [Mass/vol informati informati 2017 ume] in on in on in 12:25 AM Urine by source source Automated data data test strip Specific 1.005 - No Normal No Sep 10 gravity 1.030 informati informati 2017 of Urine on in on in 12:25 AM source source data data Epithel 20-50 0 - 5 #/hpf No No Sep 10 ial informa informa 2017 cells.s tion in tion in 12:25 quamous source source AM data data [Presen ce] in Urine sedimen t by Microsc opy high power field Urobili 1.0 NEG E.U./dL No No Sep 10 nogen informa informa 2016 [Presen tion in tion in 12:25 ce] in source source AM Urine data data by Test strip Urinalysis dipstick W Reflex Microscopic panel in Urine Observa Value Referen Units Interpr Notes Date tion ce etation Range Appeara SL CLEAR No No No Sep 10 nce of CLOUDY informa informa informa 2017 Urine tion in tion in tion in 12:25 source source source AM data data data Bilirub NEGATIV NEG No No No Sep 10 in E informa informa informa 2016 [Presen tion in tion in tion in 12:25 ce] in source source source AM Urine data data data by Test strip Erythro NEGATIV NEG No No No Sep 10 cytes E informa informa informa 2016 [Presen tion in tion in tion in 12:25 ce] in source source source AM Urine data data data Color YELLOW YELLOW No No No Sep 10 of informa informa informa 2017 Urine tion in tion in tion in 12:25 source source source AM data data data Glucose NEG No No No Sep 10 [Mass/vol informati informati informati 2016 ume] in on in on in on in 12:25 AM Urine by source source source Test data data data strip Ketones NEGATIV NEG mg/dL No No Sep 10 E informa informa 2017 [Presen tion in tion in 12:25 ce] in source source AM Urine data data by Automat ed test strip Mucus NEGATIV NEG No No No Sep 10 [Presen E informa informa informa 2017 ce] in tion in tion in tion in 12:25 Urine source source source AM sedimen data data data t by Light microsc opy Nitrite NEGATIV NEG No No No Sep 10 E informa informa informa 2016 [Presen tion in tion in tion in 12:25 ce] in source source source AM Urine data data data by Test strip pH of 5.0 - 8.5 No Normal No Aug 24 Urine informati informati 2017 on in on in 12:25 AM source source data data Protein NEG mg/dL No No Sep 10 [Mass/vol informati informati 2017 ume] in on in on in 12:25 AM Urine by source source Automated data data test strip Specific 1.005 - No Normal No Sep 10 gravity 1.030 informati informati 2017 of Urine on in on in 12:25 AM source source data data Urobili 1.0 NEG E.U./dL No No Aug 24 nogen informa informa 2017 [Presen tion in tion in 12:25 ce] in source source AM Urine data data by Test strip
--- OUTSIDE RECORDS SUMMARY | 2017-02-15 19:09 | External Medical Summary Rpt ---
Author Author BALBINAMAYRA Mcelroy, [facility] [employer] Organization [employer] Address Unknown Phone Unavailable [...] Granulocy 1.8 - 7.8 K/mm3 Normal No Mxaimiliano 24 filiberto informati 2016 [#/volume on in [...]
[2017-02-15] MEDS ORDERED: NYSTATIN SU60 ML/BOT PO (19:16)
[2017-02-15 19:18] VITALS: BP 129/69
== END 2017-02-15 19:20 | disposition home or self-care (01) ==
LOC: UTC 17:35
DX: B37.0 Candidal stomatitis (principal)